=== PATIENT | male | born 1985 | race Caucasian/White ===

== ENCOUNTER 2020-08-06 23:11 | Emergency (ER) | payer OTHER, SELFPAY ==
[2020-08-06 23:16] VITALS: BP 166/108; PULSE 115; RESP 20; TEMP 36.6; O2SAT 97; BMI 25.8
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
[2020-08-07 00:17] VITALS: BP 152/122; PULSE 99; RESP 16; O2SAT 96
--- NOTE | 2020-08-13 10:46 | DCPLANNER ---
keno manager was asked to schedule a follow up appointment for patient with ortho. keno manager called the ortho clinic, spoke with , gave clinic patients information. keno manager was told that patients information would be printed and reviewed. Clinic will call patient with appointment information.
--- NOTE | 2020-08-14 15:42 | DCPLANNER ---
Patient has a follow up appointment scheduled for Monday, August 19, 2020 at 10:[address] Singleton. Clinic will call patient with appointment information.
--- NOTE | 2020-09-02 13:32 | DCPLANNER ---
Patient had a follow up appointment scheduled for 08.19.20 with ortho - patient did attend appointment.
== END 2020-08-07 00:17 | disposition home or self-care (01) ==
PROVIDERS: Emergency Provider Physician Assistant; PCP Family Medicine
DX: S80.211A Abrasion, right knee, initial encounter (principal); S40.011A Contusion of right shoulder, initial encounter; V89.2XXA Person injured in unspecified motor-vehicle accident, traffic, initial encounter
CPT/HCPCS: 73030; 99282

== ENCOUNTER 2021-04-08 03:26 | Emergency (ER) | payer OTHER, SELFPAY ==
[2021-04-08 03:33] VITALS: BP 154/95; PULSE 99; RESP 18; TEMP 37.2; O2SAT 96; BMI 26.8
--- NOTE | 2021-04-08 03:34 | W.ED.SOB ---
HPI - SOB/Dyspnea General: Chief Complaint: General Medical Stated Complaint: cough, fever, IBARRA, wants covid test Time Seen by Provider: 04/08/21 03:34 History of Present Illness: HPI Narrative: Mr. Payton is a 36-year-old gentleman without significant past medical history presents to the emergency department due to cough, fever headache, and generalized malaise. Symptom onset was last week and subacute. Endorses moderate intensity symptoms that have persisted. He has tried home medications without significant relief. 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 No other specific changes in health, exacerbating, or alleviating factors identified. Review of Systems General: Reports: 10 or more systems reviewed and unremarkable except in HPI and below Physical Exam Narrative: EXAM NARRATIVE: GENERAL/CONSTITUTIONAL -mildly ill-appearing. No acute distress. Eyes - PERRL, no conjunctival injection ENMT - Atraumatic external nose and ears. Moist mucous membranes NECK - supple. trachea midline CARDIOVASCULAR -tachycardic rate and regular rhythm. RESPIRATORY -coarse to auscultation bilaterally. No retractions or accessory muscle use. ABDOMEN/GI - Nontender/Nondistended. MSK - Extremities without obvious deformity or tenderness to palpation SKIN - Warm, Dry NEURO - alert and appropriately oriented. No neurologic deficits appreciated. Moves all extremities equally. Course ED course: - Patient was seen and evaluated by me at bedside - Patient placed on cardiac monitors, IV access obtained - Initial evaluation notable for mildly ill appearance, given tachycardia additional evaluation warranted. -Symptom treatments given as applicable - Labs notable for no leukocytosis, metabolic panel with evidence of dehydration, CRP elevated. Procalcitonin though negative is higher than expected especially given negative Covid test. - Imaging notable for no lobar consolidation. - Upon serial reexamination after treatment the patient was similar - Based on patient history, evaluation, labs, and imaging as interpreted the most likely cause of the patient's condition is unclear, may still be viral in nature however atypical bacterial infection such as bronchitis is also possible and will be treated - The results of ED evaluation were discussed with the patient including prescriptions and/or symptomatic cares (if applicable) including appropriate and responsible use, followup plan, and return precautions. The patient verbalized understanding and felt safe for discharge. - Patient discharged in satisfactory condition. Vital Signs: Vital signs: Vital Signs Temperature 98.9 F 04/08/21 03:33 Pulse Rate 96 04/08/21 05:25 Respiratory Rate 18 04/08/21 05:25 Blood Pressure 120/83 04/08/21 05:25 Pulse Oximetry 93 04/08/21 05:25 MDM - SOB/Dyspnea Medical Records: Attestation: I reviewed the patient's medical records. Lab Data: Attestation: I reviewed the patient's lab results. Labs: Lab Results 04/08/21 04/08/21 04/08/21 03:42 04:00 04:00 WBC 9.3 10^3/uL 10^3/ uL (4.0-10.0) RBC 4.88 10^6/uL 10^6 /uL (4.1-5.3) Hgb 15.5 g/dL g/dL (11.7-16.6) Hct 44.5 % % (42.0-52.0) MCV 91.2 fl fl (80-94) MCH 31.8 pg pg (28.0-34.0) MCHC 34.8 g/dL g/dL (30.0-36.0) RDW 11.6 % L % (12.1-15.1) Plt Count 249 10^3/cmm 10^3 /cmm (130-400) MPV 9.9 fL fL (7.4-10.4) Neut % (Auto) 74.7 % % Lymph % (Auto) 12.4 % % [place] % (Auto) 11.0 % % Eos % (Auto) 1.3 % % Baso % (Auto) 0.3 % % Neut # (Auto) 6.91 10^3/uL 10^3 /uL (1.8-7.7) Lymph # (Auto) 1.2 10^3/uL 10^3/ uL (0.8-4.8) [place] # (Auto) 1.0 10^3/uL H 10^ 3/uL (0.2-0.9) Eos # (Auto) 0.1 10^3/uL 10^3/ uL (0.0-0.8) Baso # (Auto) 0.0 10^3/uL 10^3/ uL (0.0-0.1) Nucleated RBC % (a uto) 0 % % Nucleated RBCs # 0.0 /100WBC /100W BC Sodium 133 mmol/L L mmol /L (136-145) Potassium 3.7 mmol/L mmol/L (3.5-5.1) Chloride 97 mmol/L L mmol/ L (98-107) Carbon Dioxide 21 mmol/L L mmol/ L (22-29) Anion Gap 18.7 (5-19) BUN 9 mg/dL mg/dL (6-20) Creatinine 1.0 mg/dL mg/dL (0.7-1.2) GFR Calculation 85.0 mL/min L mL/ min (90-130) Glucose 104 mg/dL mg/dL (65-115) Calculated Osmolal ity 275 mOsm/kg L mOs m/kg (285-295) Calcium 9.1 mg/dL mg/dL (8.5-10.5) C-Reactive Protein 50.8 mg/L H mg/L (0.0-4.9) Procalcitonin 0.38 ng/mL ng/mL (0-0.5) SARS-CoV-2 Ag (Rap id) Negative (Negative) Discharge Plan Discharge Patient Disposition: Home Clinical Impression: Pneumonia Condition: Stable Prescriptions: New doxycycline hyclate 100 mg tablet 100 mg PO BID 7 Days Qty: 14 RF: 0 Discharge Orders: Discharge ED (Routine); Ordered 04/08/21 Ordered By: Barrie Elizabeth Discharge Diet: Usual diet Discharge Activity: Resume usual activity Patient Instructions: Pneumonia (ED) Activity Restrictions/Additional Instructions: Please followup with your PCP. Return as needed. 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
--- NOTE | 2021-04-08 03:38 | XRR_ITS ---
PROCEDURE INFORMATION: Exam: XR Chest Exam date and time: 04/08/2021 3:38 AM Age: 36 years old Clinical indication: Cough and fever and shortness of breath; Patient HX: Cough with SOB and fever. TECHNIQUE: Imaging protocol: XR of the chest. Views: 1 view. COMPARISON: CR XR shoulder RT min 2V* [id number] 08/06/2020 11:34 PM FINDINGS: Lungs: No CHF/pulmonary edema. Visible lungs appear essentially clear. Pleural spaces: No visible pneumothorax. No definite pleural fluid. Heart/Mediastinum: Heart size is within normal limits. Bones/joints: No significant acute finding. XR/XR chest 1V portable [id number] IMPRESSION: 1. Essentially unremarkable single view chest. 2. Other findings discussed above. Radiation Dose CTDIVOL = (mGy): DLP = (mGy-cm)
[2021-04-08] MEDS: sodium chloride 0.9% 1,000 ML 999 ML IV (04:02)
[2021-04-08 04:07] LABS: Basophils % 0.3 %; Eosinophils # 0.1 10^3/uL (0.0-0.8); Eosinophils % 1.3 %; Hematocrit 44.5 % (42.0-52.0); Hemoglobin 15.5 g/dL (11.7-16.6); Lymphocytes # 1.2 10^3/uL (0.8-4.8); Lymphocytes % 12.4 %; Mean Corpuscular HGB Conc 34.8 g/dL (30.0-36.0); Mean Corpuscular Hemoglobin 31.8 pg (28.0-34.0); Mean Corpuscular Volume 91.2 fl (80-94); Mean Platelet Volume 9.9 fL (7.4-10.4); Neutrophils # 6.91 10^3/uL (1.8-7.7); Neutrophils % 74.7 %; Nucleated Red Blood Cells % 0 %; Platelet Count 249 10^3/cmm (130-400); Red Blood Count 4.88 10^6/uL (4.1-5.3); Red Cell Distribution Width 11.6 % (12.1-15.1); White Blood Count 9.3 10^3/uL (4.0-10.0)
[2021-04-08 04:26] LABS: SARS Covid-2 Antigen Negative (Negative)
[2021-04-08 04:36] LABS: Procalcitonin 0.38 ng/mL (0-0.5)
[2021-04-08 04:47] LABS: Anion Gap 18.7 (5-19); Blood Urea Nitrogen 9 mg/dL (6-20); C Reactive Protein 50.8 mg/L (0.0-4.9); Calcium 9.1 mg/dL (8.5-10.5); Carbon Dioxide 21 mmol/L (22-29); Chloride 97 mmol/L (98-107); Glucose 104 mg/dL (65-115); Osmolality Calculated 275 mOsm/kg (285-295); Potassium 3.7 mmol/L (3.5-5.1); Sodium 133 mmol/L (136-145)
[2021-04-08 05:25] VITALS: BP 120/83; PULSE 96; RESP 18; O2SAT 93
== END 2021-04-08 05:26 | disposition home or self-care (01) ==
PROVIDERS: Emergency Provider Emergency Medicine
DX: J18.9 Pneumonia, unspecified organism (principal); Z20.822 Contact with and (suspected) exposure to COVID-19
CPT/HCPCS: 71045; 80048; 84145; 85025; 86140; 87426; 96360; 99283; J7030

== ENCOUNTER → 2022-04-25 12:59 | Outpatient (BNVA) | payer OTHER, SELFPAY | PROVIDERS: Visit Provider Registered Nurse Neonatal Intensive Care | DX: J02.0 Streptococcal pharyngitis (principal) | CPT/HCPCS: 87880 ==

== ENCOUNTER → 2022-10-25 16:28 | Outpatient (BNVA) | payer OTHER, BC, SELFPAY | PROVIDERS: Visit Provider Orthopaedic Surgery | DX: M25.311 Other instability, right shoulder (principal) | CPT/HCPCS: 73030 ==

== ENCOUNTER 2022-11-25 07:34 | Outpatient (CLI) | payer OTHER, BC, MEDICAID, SELFPAY ==
--- NOTE | 2022-11-25 08:00 | MR_ITS ---
WS: [id number] EXAMINATION: MR shoulder RT wo con* [id number] ORDER DATE: 11/25/2022 7:59 AM COMPARISON: None. HISTORY: M25.311 - Other instability, right shoulder CONTRAST: None. TECHNIQUE: Axial T2 STAR, coronal proton density fat sat, sagittal T2 fat sat, sagittal proton densit y fat sat, axial proton density fat sat, coronal T2 fat sat, and coronal T1 performed. FINDINGS: Normal AC joint. Subacromial space is preserved. No fluid in the AC joint. No subacromial/subdeltoid fluid. Normal supraspinatus. Normal infraspinatus. Normal subscapularis. Teres minor is normal. Biceps tendo n in the intact within the bicipital groove. Slight medial subluxation of the biceps tendon in the pr oximal bicipital groove. Intra-articular biceps tendon appears intact. Small amount of T2 signal and fluid along the intra-articular biceps tendon suspicious for partial intrasubstance tear and/or tendi nopathy. Biceps labral anchor appears intact. Glenoid labrum appears grossly normal. MR/MR shoulder RT wo con* [id number] IMPRESSION: 1. Normal AC joint. 2. Rotator cuff appears intact. No high-grade rotator cuff tear. 3. Slight medial subluxation of the biceps tendon in the proximal bicipital gr oove with a small amount of fluid and edema along the intra-articular biceps te ndon suspicious for small intrasubstance tear and/or tendinopathy. 4. No other suspicious findings.
== END 2022-11-25 07:35 | disposition home or self-care (01) ==
PROVIDERS: Visit Provider Orthopaedic Surgery
DX: M25.311 Other instability, right shoulder (principal); R60.0 Localized edema
CPT/HCPCS: 73221